=== PATIENT | male | born 1985 | race Caucasian/White ===

== ENCOUNTER 2019-04-04 11:21 | Emergency (ER) | payer MEDICAID ==
[~2019-04-04] VITALS: Ht 175.3 cm; Wt 98.4 kg
[2019-04-04 11:43] VITALS: BP 148/99; Ht 175.3 cm; Wt 98.4 kg
== END 2019-04-04 12:29 | disposition home or self-care (01) ==
LOC: ED 11:21
DX: L03.113 Cellulitis of right upper limb (principal); J45.909 Unspecified asthma, uncomplicated; I10 Essential (primary) hypertension; Z88.8 Allergy status to other drugs, medicaments and biological substances

== ENCOUNTER 2019-04-04 19:41 | Emergency (ER) | payer MEDICAID ==
[~2019-04-04] VITALS: Ht 175.3 cm; Wt 99.3 kg
[2019-04-04 20:04] VITALS: Ht 175.3 cm; Wt 99.3 kg
[2019-04-04 22:21] VITALS: BP 158/109
== END 2019-04-04 22:21 | disposition home or self-care (01) ==
LOC: ED 19:41
DX: L25.9 Unspecified contact dermatitis, unspecified cause (principal); L03.113 Cellulitis of right upper limb; J45.909 Unspecified asthma, uncomplicated; I10 Essential (primary) hypertension
CPT/HCPCS: J2930; Q0163